=== PATIENT | female | born 1970 | race Caucasian/White ===

== ENCOUNTER 2018-03-14 22:17 | Emergency (ER) | payer MEDICAID ==
[2018-03-15] MEDS ORDERED: DIPHENHYDRAMINE 50 MG INJ IV (00:25)
[2018-03-15] MEDS: METOCLOPRAMIDE 10 MG TAB PO (00:56)
[2018-03-15] MEDS: KETOROLAC 30 MG INJ IM (00:56)
[2018-03-15] MEDS: DIPHENHYDRAMINE 25 MG CAP PO (01:03)
== END 2018-03-15 04:11 | disposition left against medical advice (07) ==
LOC: FTE 22:17
DX: I10 Essential (primary) hypertension (principal)
CPT/HCPCS: 81025; 96372; 99284-25